=== PATIENT | female | born 2000 | race Two or more races ===

== ENCOUNTER 2025-01-01 03:08 | Emergency (ER) | payer MEDICAID, SELFPAY ==
[2025-01-01 03:10] VITALS: BMI 25.7
--- NOTE | 2025-01-01 03:15 | EKG_ITS ---
[facility] Test Date: 2025-01-01 Pat Name: CARRIE WOMACK Department: Room: - Gender: Female [employer] Systems Administrator: : 2000 Requested By: ED Temporary Provider Order Number: [id number] Reading MD: ED Temporary Provider Measurements Intervals [place] Rate: 71 P: 75 [place]: 185 QRS: 82 QRSD: 94 T: 66 QT: 377 QTc: 410 Interpretive Statements SINUS RHYTHM INCOMPLETE RIGHT BUNDLE BRANCH BLOCK [90+ ms QRS DURATION, TERMINAL R IN V1/V2, 40+ ms S IN I/aVL/V4/V5/V6] No previous ECG available for comparison /store/S0/[id number].pdf
[2025-01-01 03:22] VITALS: BP 122/79; PULSE 69; RESP 19; TEMP 36.5; O2SAT 100
--- NOTE | 2025-01-01 03:29 | XR_ITS ---
Examination: PA chest single view TECHNIQUE: Upright PA chest single view Date and time: January 01, 2025, 0440 hours INDICATIONS: Chest pain and shortness of breath today. FINDINGS: Normal heart size. Lungs are clear. The osseous structures are intact. IMPRESSION: No active disease.
--- NOTE | 2025-01-01 03:30 | PD.EDRME ---
Rapid Medical Screening Exam RME Arrival date/time: 01/01/25 03:08 This is a case of 34-year-old female who came in the emergency room due to chest pain and shortness of breath today no other symptoms noted persistence of symptoms this patient decided to start consult here in the emergency room Time Seen by Provider: 01/01/25 03:28 Vital signs: Vital Signs Temperature 97.7 F 01/01/25 03:22 Pulse Rate 69 01/01/25 03:22 Respiratory Rate 19 01/01/25 03:22 Blood Pressure 122/79 01/01/25 03:22 Pulse Oximetry (%) 100 01/01/25 03:22 Oxygen Delivery Method Room Air 01/01/25 03:22
[2025-01-01 04:10] LABS: Basophils # (Auto) 0.1 Thou/mm3 (0.0-0.2); Basophils % (Auto) 1 % (0-2.5); Eosinophils # (Auto) 0.3 Thou/mm3 (0.0-0.5); Eosinophils % (Auto) 4 % (0-10); Hematocrit 27.6 % (36.0-46.0); Immature Granulocytes Auto 0.01 Thou/mm3 (0.00-0.00); Lymphocytes # (Auto) 2.6 Thou/mm3 (1.0-4.8); Lymphocytes % (Auto) 35 % (10-50); Mean Corpuscular HGB Conc 28.3 g/dl (31.0-37.0); Mean Corpuscular Hemoglobin 17.6 pg (25.0-35.0); Mean Corpuscular Volume 62 fL (80-100); Monocytes # (Auto) 0.6 Thou/mm3 (0.0-0.8); Monocytes % (Auto) 9 % (0-12); Neutrophils # (Auto) 3.8 Thou/mm3 (1.8-7.7); Neutrophils % (Auto) 51 % (37-80); Nucleated Red Blood Cell # 0.00 Thou/mm3 (0.00-0.00); Nucleated Red Blood Cell % 0 /100 WBC (0); Platelet Count 317 Thou/mm3 (140-440); RDW Standard Deviation 41.8 fL (36.4-46.3); Red Blood Count 4.44 Miln/mm3 (4.00-5.20); White Blood Count 7.3 Thou/mm3 (3.6-11.0)
[2025-01-01 04:11] LABS: Hemoglobin 7.8 g/dL (12.0-16.0)
[2025-01-01 04:21] LABS: Alanine Aminotransferase 27 U/L (10-49); Albumin, Serum 4.4 gm/dL (3.5-5.0); Albumin/Globulin Ratio 1.6 (1.2-2.2); Alkaline Phosphatase 74 U/L (46-116); Anion Gap 9 (7-16); Aspartate Amino Transferase 33 U/L (0-34); BUN/Creatinine Ratio 10 Ratio (12-20); Bilirubin,Total 0.7 mg/dL (0.3-1.2); Blood Urea Nitrogen 7 mg/dL (9-23); Calcium 9.5 mg/dL (8.3-10.6); Calcium (Corrected) 9.5 mg/dL (8.5-10.1); Carbon Dioxide 23.1 mMol/L (20.0-31.0); Chloride 110 mMol/L (98-107); Creatinine (Component) 0.7 mg/dL (0.6-1.3); Estimated Creatinine Clearance 115.4 mL/min (>60); Globulin 2.8 gm/dL (2.3-3.5); Glucose 92 mg/dL (74-106); Osmolality,Calculated 281 (275-295); Potassium 3.5 mMol/L (3.4-5.1); Sodium 142 mMol/L (136-145); Total Protein 7.2 gm/dL (5.7-8.2); Troponin I < 0.002 ng/mL (0.0-0.045); eGFR > 60 See Note
[2025-01-01 04:57] LABS: HCG,Qualitative Serum Negative
[2025-01-01 05:03] LABS: B-Type Natriuretic Peptide < 20 pg/mL (0-100)
--- NOTE | 2025-01-01 05:08 | EDNOTE_ITS ---
ED Chest Pain RME/HPI General Stated Complaint: DIFFICULTY BREATHING Time Seen by Provider: 01/01/25 03:28 Arrival date/time: 01/01/25 03:08 This is a case of 34-year-old female with history of anemia and asthma came in in the emergency room due to shortness of breath and chest pain 1 hour prior to arrival in the emergency room patient woke up with the symptoms no other symptoms noted no fever no chills no palpitation no cough no nasal congestion Limitations: no limitations RME / HPI RME / HPI narrative: 01/01/25 03:08 This is a case of 34-year-old female who came in the emergency room due to chest pain and shortness of breath today no other symptoms noted persistence of symptoms this patient decided to start consult here in the emergency room Related Data Previous Rx's ?Medication ?Instructions ?Recorded acetaminophen 500 mg capsule 1,000 mg (2 x 500 mg) PO Q8HR PRN 07/22/19 pain #60 caps ibuprofen 800 mg tablet 800 mg PO TID PRN pain #30 t abs 07/22/19 albuterol sulfate 90 mcg/actuation 2 puff inhalation Q 4H PRN 01/01/25 aerosol inhaler (Ventolin HFA) shortness of breath or wheezing #8.5 grams ferrous sulfate 325 mg (65 mg 325 mg PO TID 30 days #9 0 tabs 01/01/25 iron) tablet Allergies Allergy/AdvReac Type Severity Reaction Status Date / Time No Known Allergies Allergy Verified 01/01/25 03:14 Review of Systems Review of Systems Systems Reviewed: All systems reviewed, normal except as documented Constitutional Constitutional: Reports system reviewed and no additional complaints, except as documented Cardiovascular Cardiovascular: Reports system reviewed and no additional complaints, except as documented, Reports as per HPI, Denies acrocyanosis, Reports chest pain, Denies chest pain at rest, Denies chest pain with activity, Denies claudication, Denies diaphoresis, Reports dyspnea, Denies dyspnea on exertion, Denies edema, Denies irregular heart rhythm, Denies leg edema, Denies leg ulcers, Denies lightheadedness, Denies orthopnea, Denies palpitations, Denies paroxysmal nocturnal dyspnea, Denies rapid heart rate and Denies slow heart rate Respiratory Respiratory: Reports system reviewed and no additional complaints, except as documented, Reports as per HPI, Reports dyspnea and Denies dyspnea on exertion Gastrointestinal Gastrointestinal: Reports system reviewed and no additional complaints, except as documented and Reports as per HPI Musculoskeletal Musculoskeletal: Reports system reviewed and no additional complaints, except as documented and Reports as per HPI Neurologic Neurologic: Reports system reviewed and no additional complaints, except as documented and Reports as per HPI Endocrine Endocrine: Denies palpitations Past Medical History Past Medical History CARDIAC: Negative Cardiac Disorders or Congestive Heart Failure RESPIRATORY: Positive Asthma; Negative Chronic Obstructive Pulmonary Disease (COPD) GENITOURINARY: Negative Renal Disease ENDOCRINE: Negative Diabetes Mellitus Type 1 or Diabetes Mellitus Type 2 HEMATOLOGIC: Negative Sickle Cell Disease Social History SMOKING STATUS: Never smoker ED Exam General Limitations: Present no limitations General appearance: Present alert and in no apparent distress Head Head exam: Present atraumatic Eye Eye exam: Present normal appearance, PERRL and EOMI ENT ENT exam: Present normal exam, normal oropharynx and mucous membranes moist Neck Neck exam: Present normal inspection, full ROM and trachea midline; Absent tenderness, meningismus, lymphadenopathy or thyromegaly Chest Chest inspection: Present normal inspection and symmetric chest wall rise; Absent tenderness, rash or abscess Respiratory Respiratory exam: Present normal lung sounds bilaterally; Absent respiratory distress, wheezes, stridor, accessory muscle use or prolonged expiratory phase Cardiovascular Cardiovascular exam: Present regular rate, normal rhythm and normal heart sounds; Absent bradycardia, tachycardia, irregular rhythm, systolic murmur or diastolic murmur Abdominal Exam Abdominal exam: Present soft and normal bowel sounds; Absent distention, tenderness, guarding, rebound, rigidity, diminished bowel sounds, hyperactive bowel sounds or hypoactive bowel sounds Extremities Exam Extremities exam: Present normal inspection and full ROM Back Exam Back exam: Present normal inspection and full ROM Neurological Exam Neurological exam: Present alert, oriented X3, CN II-XII intact, normal gait and reflexes normal; Absent motor sensory deficit Psychiatric Psychiatric exam: Present normal affect and normal mood Skin Skin exam: Present warm, dry, intact and normal color Course Quality Measures none Orders Category Date Time Status EKG (ED ONLY) *Do not use* NOW Care 01/01/25 03:15 Completed EKG (ED Only) Stat Exams 01/01/25 03:15 Draft XR chest 1V portable Stat Exams 01/01/25 03:29 Taken BNP [B-Type Natriuretic Peptide] Stat Lab 01/01/25 03:52 Completed CBC Stat Lab 01/01/25 03:52 Completed CMP [Comprehensive Metabolic Panel] Stat Lab 01/01/25 03:52 Completed HCG,Qualitative Serum Stat Lab 01/01/25 03:52 Completed Troponin I Stat Lab 01/01/25 03:52 Completed HYDROcodone*/APAP 5/325 [[place] 5/325] Med 01/01/25 04:21 Discontinued 1 tab PO X1 ONE Vital Signs Vital signs: Vital Signs Temperature 97.7 F 01/01/25 03:22 Pulse Rate 69 01/01/25 03:22 Respiratory Rate 19 01/01/25 03:22 Blood Pressure 122/79 01/01/25 03:22 Pulse Oximetry (%) 100 01/01/25 03:22 Oxygen Delivery Method Room Air 01/01/25 03:22 Patient is afebrile not tachycardic not tachypneic not hypoxic oxygen saturation is 100% in room air not hypoxic Chest Pain MDM Narrative MDM Narrative:: This is a case of 34-year-old female with history of anemia and asthma came in in the emergency room due to shortness of breath and chest pain 1 hour prior to arrival in the emergency room patient woke up with the symptoms no other symptoms noted no fever no chills no palpitation no cough no nasal congestion ph ysical examination patient is awake alert oriented not in distress nontoxic looking patient is afebrile not tachycardic not tachypneic not hypoxic patient have excellent skin turgor not pale patient lungs sound is clear no crackles no rales no retraction no stridor heart normal rate regular rhythm no murmur the rest of the physical examination neurological exam is normal and unremarkable patient but blood test showed no leukocytosis patient is anemic with hemoglobin of 7.8 platelet is normal no electrolyte imbalance kidney and liver function is normal patient troponin is negative patient BNP is negative EKG is normal sinus rhythm chest x-ray is normal no infiltrates no cardiomegaly at this point patient chest pain is not cardiopulmonary pathology although patient was advised to follow-up with PCP to be referred to ic designer [facility] for possible echocardiogram stress test and Holter monitor she was also advised to see a high climber for his anemia for any recurrence worsening symptoms or any emergent concerns she will return the emergency room immediately or call 911 she was prescribed with inhaler for her asthma and iron for her anemia Patient was discharged with comfortable condition walking with stable gait. Patient verbalized no further complains explained diagnosis and answered patient question. Patient is comfortable with the proposed management plan including the need to follow up with his/her primary care physician and any specialist if applicable Discussed patient for any urgent condition or worsening sx, He/She needed to go to emergency room immediately or call 911. Patient acknowledge the responsibility to follow up as instructed and to monitor her/his symptoms. For any persistence of the symptoms for more than 3-5 days return precaution advised. Discussed the result of the test and was given printed discharge instruction Patient data External records reviewed:: [facility] previous records Clinical information provided by:: patient Social determinants that could affect healthcare access:: none Patient has the following chronic illnesses:: None How is presenting disease/condition affected by chronic disease/condition?: no chronic disease Evaluation data The following diagnostics were reviewed and interpreted by me:: lab results and radiology exam(s) Lab and/or radiology exams considered but not ordered:: Reviewed Interpretation Summary: Reviewed Medications / Prescriptions Medications or Prescriptions considered but not ordered:: Given Medication administrations:: Medication Administration History Discontinued Medications Hydrocodone Bitart/Acetaminophen (Hydrocodone/Apap 5/325 Tablet) 1 tab PO X1 ONE Stop: 01/01/25 04:22 Given Consultations Consultation(s) initiated? (list below): Yes Consultation #1 (Physician, Specialty, Details): Discussed the patient with Dr. Rios patient condition laboratory results and imaging and anemia I was instructed to discharge patient and follow-up with high climber Diagnosis Chest Pain Differential Diagnosis: atypical chest pain and chest pain Most likely diagnosis given after review of the tests above:: Chest pain of unknown etiology anemia Admission Indicated Admission indicated?: not indicated Explain why admission is indicated or not indicated:: Not indicated Admission Request Was there a request for admission?: No Admission Attestation Admission request attestation: Not indicated Disposition Plan Disposition Plan: Discharge Discharge Attestation Discharge Attestation: The patient and all family members were given an opportunity to ask questions and understood the discharge instructions. Discharge instructions specifically effects, indications for sooner follow up or return to the emergency department, and the expected course of current diagnosis. Patient condition: Stable Discharge Plan Plan Patient Disposition: HOME (Self Care) Patient condition on transfer: Stable Prescriptions/Referrals Prescriptions/Med Rec: New ferrous sulfate 325 mg (65 mg iron) tablet 325 mg PO TID 30 Days Qty: 90 0RF albuterol sulfate [Ventolin HFA] 90 mcg/actuation HFA aerosol inhaler 2 puff inhalation Q4H PRN (Reason: shortness of breath or wheezing) Qty: 8.5 0RF No Action ibuprofen 800 mg tablet 800 mg PO TID PRN (Reason: pain) Qty: 30 0RF acetaminophen 500 mg capsule 1,000 mg PO Q8HR PRN (Reason: pain) Qty: 60 0RF Referrals: No Primary/Family,Physician [Primary Care Provider] - In 1 week Problem List Clinical Impression: Chest pain of unknown etiology, Shortness of breath, Anemia Patient/Caregiver Discharge Instructions Education Materials: Anemia, ED Chest Pain, Uncertain Cause, ED Shortness of Breath (Dyspnea) Additional Instructions: Follow-up with your primary care physician in 2 days for reevaluation and to be referred to ic designer [facility] for further evaluation and treatment of chest pain for possible echocardiogram stress test and Holter monitor he also need to be referred to high climber for further evaluation and treatment of her anemia for any worsening symptoms recurrence of symptoms or any emergent concern call 911 or go to the nearest emergency room take your medication as directed keep hydrated Print Language: German Stand Alone Forms: Janna Award Info., Patient Portal Info Letter PA/SPEEDER MACHINE OPERATOR Supervising Physician PA/SPEEDER MACHINE OPERATOR Supervising Physician: dr rios
[2025-01-01 05:28] LABS: Path Review Blood Smear Sent to Pathologist
== END 2025-01-01 06:52 | disposition home or self-care (01) ==
PROVIDERS: Nurse Practitioner Family; Emergency Provider Emergency Medicine
DX: R07.9 Chest pain, unspecified (principal); D64.9 Anemia, unspecified; J45.909 Unspecified asthma, uncomplicated; I45.10 Unspecified right bundle-branch block
CPT/HCPCS: 36415; 71045; 80053; 83880; 84484; 84703; 85025; 93005; 99283